=== PATIENT | male | born 1970 | race Caucasian/White ===

== ENCOUNTER 2025-02-07 19:44 | Emergency (ER) | payer OTHER ==
[~2025-02-07] VITALS: Ht 182.9 cm; Wt 100.0 kg
[2025-02-07] MEDS ORDERED: CEPHALEXIN500 M1 PO (20:05)
[2025-02-07] MEDS ORDERED: CEPHALEXIN MONOHYDRATE 500 MG HOME.PACK PO ONE (20:15)
[2025-02-07 20:25] VITALS: BP 131/79
== END 2025-02-07 20:26 | disposition home or self-care (01) ==
LOC: ED 19:44
DX: S91.202A Unspecified open wound of left great toe with damage to nail, initial encounter (principal); W22.8XXA Striking against or struck by other objects, initial encounter
CPT/HCPCS: 11730; 99283; A9270